=== PATIENT | male | born 1960 | race Caucasian/White ===

== ENCOUNTER → 2019-03-02 | Outpatient (CLI) | payer BC ==
[2016-10-19 09:02] VITALS: BP 111/82
[~2019-03-02] MED LIST: CALC400T5 PO; METO-269 PO; OMEP20TA63 PO; SIME80TA43 PO
--- NOTE | 2019-03-03 10:14 | KCIC ---
Examination: 3 views of the thoracic spine HISTORY: History of chronic pain Comparison: None available FINDINGS: The thoracic vertebral body heights are maintained. No evidence of listhesis identified. Mild intervertebral disc height loss identified in thoracic spine likely degeneration. IMPRESSION: Mild degenerative changes thoracic spine Electronically signed by: Mohan Dyson MD (03/03/2019 10:11 AM) [email or web address]
== END | disposition home or self-care (01) ==
LOC: KCIC 15:43
PROVIDERS: ATTEND Nurse Practitioner Gerontology
DX: M47.814 Spondylosis without myelopathy or radiculopathy, thoracic region (principal)
CPT/HCPCS: 72072

== ENCOUNTER → 2019-03-03 | Outpatient (CLI) | payer BC ==
[2016-10-19 09:02] VITALS: BP 111/82
--- NOTE | 2019-03-03 14:21 | KCIC ---
EXAM: Lumbar spine, 3 views. HISTORY: Pain. COMPARISON: None. FINDINGS: 3 views of the lumbar spine are obtained. There is minimal lumbar dextrocurvature. There is no significant listhesis. The vertebral bodies are normal in height. There is degenerative anterior endplate remodeling at the majority of the lumbar levels. There is slight facet arthropathy predominantly at the lumbosacral junction. There is a right hip arthroplasty partially included on the [id number]. There calcifications overlying the upper abdomen, consistent with the sequela of chronic pancreatitis. IMPRESSION: 1. Mild multilevel degenerative change. 2. No acute osseous finding. Electronically signed by: Rhonda Worthy MD (03/03/2019 2:18 PM) [email or web address]
== END | disposition home or self-care (01) ==
LOC: KCIC 13:54
PROVIDERS: ATTEND Nurse Practitioner Gerontology
DX: M47.816 Spondylosis without myelopathy or radiculopathy, lumbar region (principal); M43.8X6 Other specified deforming dorsopathies, lumbar region; M12.88 Other specific arthropathies, not elsewhere classified, other specified site; Z96.641 Presence of right artificial hip joint
CPT/HCPCS: 72100

== ENCOUNTER → 2019-03-12 | Outpatient (CLI) | payer BC ==
[2016-10-19 09:02] VITALS: BP 111/82
--- NOTE | 2019-03-13 07:58 | KCIC ---
MRI of lumbar spine without contrast 03/12/2019 CLINICAL HISTORY: New left-sided low back pain. TECHNIQUE: Unenhanced T1-weighted and T2-weighted sagittal and axial and inversion recovery sagittal images of the lumbar spine were obtained. FINDINGS: Comparison is made to radiographs lumbar spine dated 03/03/2019. Minimal S-shaped curvature of the thoracolumbar spine is seen. Degenerative signal changes are seen involving all of the disks of the lumbar spine. Degenerative signal changes are seen within the marrow surrounding these discs. On the axial images throughout the lumbar disc spaces the changes of degenerative disc disease are seen. These relatively mild. They consist of minimal to mild generalized disc bulges, degenerative changes involving the facet joints and mild to moderate ligamentum flavum hypertrophy bilaterally. At the L5-S1 disc space a central/left paracentral focal disc protrusion is seen which measures 3 mm in AP diameter. These findings do not result in significant central spinal canal or neural foraminal stenosis at any level. IMPRESSION: The changes of relatively mild degenerative disc disease are seen throughout the lumbar spine. These findings do not result in significant central spinal canal or neural foraminal stenosis. Electronically signed by: Hector Mock MD (03/13/2019 7:55 AM) [facility]
== END | disposition home or self-care (01) ==
LOC: KCIC MRI 15:47
PROVIDERS: ATTEND Nurse Practitioner Gerontology
DX: M51.37 Other intervertebral disc degeneration, lumbosacral region (principal); M89.38 Hypertrophy of bone, other site
CPT/HCPCS: 72148